=== PATIENT | male | born 1995 | race Caucasian/White ===

== ENCOUNTER 2017-06-04 15:43 | Emergency (ER) | payer BC ==
[2017-06-04 15:56] VITALS: BP 149/67; PULSE 98; RESP 16; TEMP 98.1; O2SAT 96
--- NOTE | 2017-06-04 16:09 | EDPHY ---
H & P Time Seen by Provider: 06/04/17 15:52 HPI/ROS: This patient complains of thigh at a painful bump in his right groin. 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 He has noticed any new injuries to the area while sparring. He is concerned that he might have a hernia. He explains that he initially contact an urgent care clinic but after taking the symptoms encouraged him to come to the emergency department concerned he may have a hernia. He reports the intensity of the pain is 6/10 achy in nature. He has associated mild tenderness. ROS: No fevers or chills. No other constitutional symptoms HEENT complaints none Pulmonary: No complaints Cardiovascular: No complaints GI: No generalized abdominal pain or distention. Normal bowel movements. No nausea vomiting. : No testicular pain or swelling. No dysuria, frequency urgency. No urethral discharge. Integumentary: Patient reports he has long time acne and also gets skin lesions after shaving in the pubic region. He denies any STD risk factors. He is in a monogamous relationship but does not use a condom. 7 point ROS is otherwise negative. 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 General: No acute distress Eyes: Pupils equal and react to light. Extraocular motions are intact. Lungs: No respiratory distress. Cardiac: Brisk capillary refill is intact throughout. Abdomen: Normal active, soft, nontender, no evidence of inguinal hernia on my exam. : Patient has circumcised penis with no urethral discharge. There is an isolated area of swelling to the right inguinal canal region mid canal that is firm approximately cm size consistent with adenopathy. There is no overlying erythema. No increase in the size of this with Valsalva. Skin to the areas notable for multiple superficial ulcerative skin lesions and small papules consistent with acne and or folliculitis. This pubic hair short consistent with recent shaving. Skin: No rash or pallor. Acne to face-moderate and skin findings area as per exam above. No petechia or purpura. No abscesses noted. Neuro: Alert with no sensorimotor deficits. Initial differential diagnosis: Inguinal lymphadenopathy, folliculitis, acne, STD. Doubt inguinal hernia based on current history and exam. Constitutional: Initial Vital Signs Temperature (C) 36.7 C 06/04/17 15:53 Heart Rate 98 06/04/17 15:53 Respiratory Rate 16 06/04/17 15:53 Blood Pressure 149/67 H 06/04/17 15:53 O2 Sat (%) 96 06/04/17 15:53 O2 Delivery Mode Room Air Allergies/Adverse Reactions: No Known Allergies Allergy (Verified 06/04/17 15:58) Home Medications: Medication Instructions Recorded Doxycycline Hyclate [Vibramycin 100 mg PO BID #20 cap 06/04/17 100 MG (*)] MDM/Departure - MDM Diagnostics: Urinalysis is normal. Chlamydia and gonorrhea genprobe on split specimen urine pending ED Course/Re-evaluation: Discussion: Findings are most consistent with inguinal adenopathy attributable to folliculitis. I counseled patient regarding this will start him on doxycycline. Patient has no significant risk factors for STD but did send GC and Chlamydia studies that are pending to rule this out. Patient understands the plan. He will return for any worsening of symptoms despite the treatment plan of doxycycline and ibuprofen. - Depart Disposition: Home, Routine, Self-Care Clinical Impression: Inguinal lymphadenopathy, Folliculitis Condition: Good Instructions: Lymphadenopathy (ED), Folliculitis (ED) Additional Instructions: Diagnoses: 1. Inguinal lymphadenopathy 2. Folliculitis and acne Plan: Clean the area daily with warm soapy water Doxycycline antibiotic Take yogurt and/or probiotic while on doxycycline to prevent diarrhea Ibuprofen-600 mg per 6 hr for aches to the area as needed The test that we sent on your urine will take a day or 2 to come back. We will call you if this is positive. Return for any significant worsening despite the treatment plan. Prescriptions: Doxycycline Hyclate [Vibramycin 100 MG (*)] 100 mg PO BID #20 cap Referrals: MICHELLE Roberto,. [Primary Care Provider] - As per Instructions
[2017-06-04 16:17] LABS: COLOR PALE YELLOW; LEUKOCYTE ESTERASE,URINE NEGATIVE (NEGATIVE); NITRITE,URINE NEGATIVE (NEGATIVE)
[2017-06-06 15:36] LABS: CHLAMYDIA AMPLIFICATION GENPRB NEGATIVE (NEGATIVE)
== END 2017-06-04 16:20 | disposition home or self-care (01) ==
LOC: CED 15:43
DX: L73.9 Follicular disorder, unspecified (principal); R59.0 Localized enlarged lymph nodes
CPT/HCPCS: 81003-PO